=== PATIENT | male | born 1960 | race Caucasian/White ===

== ENCOUNTER → 2017-03-06 | Outpatient (CLI) | payer MEDICARE ==
[~2017-03-06] MED LIST: BUPROPION HCL150 M1 PO; GABAPENTIN 600600 MG PO; VENLAFAXINE HY150 MG PO
== END ==
LOC: DIETICIAN 12:50 → RT 14:00
DX: E11.65 Type 2 diabetes mellitus with hyperglycemia (principal); Z71.3 Dietary counseling and surveillance; R06.02 Shortness of breath
CPT/HCPCS: G0108